=== PATIENT | male | born 1955 | race Caucasian/White ===

== ENCOUNTER 2024-03-09 15:29 | Emergency (ER) | payer BC ==
[~2024-03-09] VITALS: Ht 188 cm; Wt 127.0 kg
[2024-03-09 15:41] VITALS: BP 175/103; PULSE 90; RESP 18; TEMP 98.2; O2SAT 98
[2024-03-09 15:48] VITALS: O2SAT 98
[2024-03-09 18:00] LABS: HEMATOCRIT 43.7 % (42.0-52.0); HEMOGLOBIN 15.1 g/dL (14.0-18.0); MEAN CORPUSCULAR HGB CONC 34.6 g/dL (31.0-37.0); MEAN CORPUSCULAR VOLUME 104.2 fL (80.0-94.0); PLATELET 169 x1000/uL (130-400); RED BLOOD CELL COUNT 4.19 mill/uL (4.7-6.1); RED CELL DISTRIBUTION WIDTH 13.1 % (11.6-14.6); WHITE BLOOD COUNT 7.9 x1000/uL (4.5-11.0)
[2024-03-09 18:04] LABS: CHLORIDE 108 mEq/L (98-107); POTASSIUM 4.4 mEq/L (3.5-5.1); SODIUM 141 mEq/L (136-145)
[2024-03-09 18:05] LABS: CARBON DIOXIDE 27 mEq/L (21-32)
[2024-03-09 18:06] LABS: CALCIUM 10.6 mg/dL (8.7-10.4)
[2024-03-09 18:11] LABS: GLUCOSE 144 mg/dL (70-105); UREA NITROGEN BLOOD 14 mg/dL (9-23)
[2024-03-09 20:25] LABS: CLARITY URINE CLOUDY (CLEAR); COLOR URINE YELLOW (YELLOW); GLUCOSE URINE NEGATIVE (NEGATIVE); KETONES URINE NEGATIVE (NEGATIVE); PROTEIN URINE TRACE (NEGATIVE); SPECIFIC GRAVITY URINE 1.009 (1.005-1.030)
[2024-03-09 20:26] LABS: LEUKOCYTE ESTERASE URINE NEGATIVE (NEGATIVE); NITRITE URINE NEGATIVE (NEGATIVE); OCCULT BLOOD URINE 3+ (NEGATIVE); UROBILINOGEN URINE 0.2 E.U./dL (0.2-1.0)
[2024-03-09 20:27] LABS: RBC URINE 25-50 /hpf (0-2); WBC URINE 0-2 /hpf (0-2)
[2024-03-09 20:29] LABS: BACTERIA URINE 1+; SQUAMOUS EPITHELIAL CELL URINE NONE SEEN /lpf (RARE/1+)
== END 2024-03-09 22:27 | disposition home or self-care (01) ==
LOC: ER 15:29
DX: R33.9 Retention of urine, unspecified (principal); I11.9 Hypertensive heart disease without heart failure
CPT/HCPCS: 36415; 51701; 71045; 76770; 80048; 81003; 85027; 99284

== ENCOUNTER 2024-05-16 22:53 | Emergency (ER) | payer MEDICARE, BC ==
[~2024-05-16] VITALS: Ht 188 cm; Wt 94.0 kg
[2024-05-16 23:10] VITALS: O2SAT 99
[2024-05-17 02:35] VITALS: BP 159/88; PULSE 95; RESP 18; TEMP 36.7; O2SAT 98
== END 2024-05-17 02:35 | disposition home or self-care (01) ==
LOC: ER 22:53
DX: T85.638A Leakage of other specified internal prosthetic devices, implants and grafts, initial encounter (principal); I10 Essential (primary) hypertension; Y92.89 Other specified places as the place of occurrence of the external cause
CPT/HCPCS: 99281

== ENCOUNTER 2024-05-27 00:37 | Emergency (ER) | payer BC, MEDICARE ==
[~2024-05-27] VITALS: Ht 188 cm; Wt 106.0 kg
[2024-05-27 00:44] VITALS: O2SAT 99
[2024-05-27 04:52] VITALS: BP 142/79; PULSE 93; RESP 18; TEMP 36.9; O2SAT 99
== END 2024-05-27 04:53 | disposition home or self-care (01) ==
LOC: ER 00:37
DX: T83.9XXA Unspecified complication of genitourinary prosthetic device, implant and graft, initial encounter (principal); I10 Essential (primary) hypertension; Z98.890 Other specified postprocedural states
CPT/HCPCS: 51702; 99284

== ENCOUNTER 2024-05-27 15:23 | Emergency (ER) | payer BC, MEDICARE ==
[~2024-05-27] VITALS: Ht 188 cm; Wt 105.0 kg
[2024-05-27 15:26] VITALS: PULSE 82; RESP 16; O2SAT 100
[2024-05-27 15:29] VITALS: BP 141/82; TEMP 37.1; O2SAT 98
== END 2024-05-27 22:15 | disposition home or self-care (01) ==
LOC: ER 15:23
DX: T83.018A Breakdown (mechanical) of other urinary catheter, initial encounter (principal); I10 Essential (primary) hypertension; Z90.79 Acquired absence of other genital organ(s); Z98.890 Other specified postprocedural states; Y92.89 Other specified places as the place of occurrence of the external cause
CPT/HCPCS: 51702; 99284